=== PATIENT | male | born 1960 | race Caucasian/White ===

== ENCOUNTER 2017-07-02 08:51 | Inpatient (IN) ==
[2017-07-02] MEDS ORDERED: Aspirin 81 MG TAB.CHEW PO ONE (09:01)
[2017-07-02] MEDS ORDERED: 0.9 % Sodium Chloride 500 ML IVC ONE (09:01)
[2017-07-02] MEDS ORDERED: Ipratropium/Albuterol Neb 3 ML ONE (09:08)
[2017-07-02] MEDS: Ipratropium/Albuterol Neb 3 ML IH ONE ×2 (09:09→09:27)
[2017-07-02] MEDS: Nitroglycerin 0.4 MG TAB.SUBL SL PRN ×3 (09:09→09:19)
[2017-07-02 09:17] LABS: Immature Granulocytes % 0.4 % (0-4); Mean Corpuscular Volume 93.1 fL (83.0-100.0)
[2017-07-02 09:19] LABS: Basophils # 0.1 K/mcL (0.0-0.2); Basophils % 0.9 %; Eosinophils # 0.6 K/mcL (0.0-0.6); Hematocrit 51.6 % (37.5-50.1); Hemoglobin 17.8 g/dL (12.9-16.9); Immature Platelets 9.5 % (1.1-6.1); Lymphocytes # 2.3 K/mcL (0.6-4.6); Lymphocytes % 14.5 %; Mean Corpuscular HGB Conc 34.5 g/dL (31.6-35.5); Mean Corpuscular Hemoglobin 32.1 pg (28.0-33.3); Mean Platelet Volume 11.4 fL (9.4-12.4); Monocytes # 1.1 K/mcL (0.0-1.3); Monocytes % 6.8 %; Red Blood Count 5.54 M/mcL (4.19-5.50); Red Cell Distribution Width 14.7 % (11.5-14.5); Segmented Neutrophils % 73.4 %
[2017-07-02 09:20] LABS: Neutrophils # 11.8 K/mcL (1.6-8.9); Platelet Count 91 K/mcL (140-400)
[2017-07-02 09:29] LABS: BUN/Creatinine Ratio 14 (6-26); Blood Urea Nitrogen 13 mg/dL (8-26); Calcium 9.1 mg/dL (8.6-10.8); Carbon Dioxide 25 mEq/L (19-29); Chloride 104 mEq/L (98-109); Glucose 132 mg/dL (70-99); Osmolality,Calculated 290 (280-300); Sodium 139 mEq/L (136-145); eGFR For African Americans > 60 (> 60); eGFR For Non-African Americans > 60 (> 60)
--- NOTE | 2017-07-02 09:36 | Emergency Department Note ---
Disposition Clinical Impression: Atypical chest pain, Hypoxia, Multifocal pneumonia Chest pain Qualifiers: Chest pain type: other chest pain Qualified Code(s): R07.89 - Other chest pain Community acquired pneumonia Qualifiers: Laterality: right Lung location: lower lobe of lung Qualified Code(s): J18.1 - Lobar pneumonia, unspecified organism Bilateral pneumonia Qualifiers: Pneumonia type: due to unspecified organism Lung location: lower lobe of lung Qualified Code(s): J18.9 - Pneumonia, unspecified organism Leukocytosis Qualifiers: Leukocytosis type: unspecified Qualified Code(s): D72.829 - Elevated white blood cell count, unspecified Disposition: Admitted As Inpatient Condition: Fair Time of Disposition: 12:30 Chest Pain HPI - General Chief Complaint: ED Chest Pain Stated Complaint: APRIL,Coughing up blood,CP Time Seen by Provider: 07/02/17 09:01 Source: patient Limitations: no limitations Vital Signs Reviewed: Yes Nursing Notes Reviewed: Yes - History of Present Illness HPI Narrative: Patient is a 56-year-old male complains of chest pain, shortness of breath 2 months with worsening chest pain today. sharp pain 10/10 with radiation right-to -left across patient's chest. Patient's pain is constant. Patient was walked over from the residency clinic for severe hypoxia the O2 sat of 68% on room air. Which was witnessed here at bedside. Patient still able to stand and talk without any conversational dyspnea and had to be told to sit down. Patient placed on O2. 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 No history of previous NH. Severity scale (1-10): 0 - Related Data Home Medications Medication Instructions Recorded Confirmed Albuterol Sulfate [Ventolin Hfa] 2 puff IH Q6H PRN 07/02/17 07/02/17 Budesonide [Rhinocort Allergy] 2 spr NS DAILY 07/02/17 07/02/17 Budesonide/Formoterol 160/4.5 2 puff IH BIDR 07/02/17 07/02/17 [Symbicort 160/4.5] Cyclobenzaprine [Flexeril] 10 mg PO TID 07/02/17 07/02/17 Loratadine [Allergy Relief] 10 mg PO DAILY 07/02/17 07/02/17 Omeprazole [PriLOSEC] 20 mg PO DAILY 07/02/17 07/02/17 Allergies Allergy/AdvReac Type Severity Reaction Status Date / Time Penicillins Allergy Rash Verified 05/05/15 18:48 All systems ED: reviewed and negative except as stated. Review of Systems: As Per HPI Constitutional: Denies: fever Eyes: Denies: vision change ENT ED: Denies: congestion Cardiovascular: Reports: chest pain, dyspnea on exertion, orthopnea. Denies: palpitations Respiratory: Reports: cough, dyspnea. Denies: wheezes, hemoptysis Gastrointestinal: Denies: abdominal pain, nausea, vomiting, diarrhea Genitourinary: Denies: urgency, dysuria, frequency Musculoskeletal: Reports: back pain Integumentary: Denies: rash Neurological: Denies: headache, weakness Endocrine: Reports: fatigue Chest Pain PMH - Past Medical History Medical history: Reports: no medical history Psychiatric history: Reports: anxiety, depression, other - Social History Smoking Status: Current every day smoker Alcohol use: Reports: none Drug use: Reports: none Physical Exam Vital Signs Temperature 98.5 F 07/02/17 08:53 Pulse Rate 113 07/02/17 08:53 Respiratory Rate 16 07/02/17 08:53 Blood Pressure 179/107 07/02/17 08:53 O2 Sat by Pulse Oximetry 62 07/02/17 08:53 Temperature 98.5 F 07/02/17 08:53 Pulse Rate 94 07/02/17 09:01 Respiratory Rate 18 07/02/17 09:01 Blood Pressure 179/107 07/02/17 08:53 O2 Sat by Pulse Oximetry 99 07/02/17 09:01 Oxygen Delivery Oxygen Delivery Non Rebreather Mask 56-year-old male who is alert and oriented 3 and in acute distress. Patient is hypertensive at 179/107 and tachycardic at 113 with an O2 sat of 62% on room air. Patient was placed on O2 via nonrebreather at 15 L which brought his O2 sat slowly up to 100%. - General Limitations: no limitations General appearance: alert - Head Head exam: atraumatic, normocephalic, normal inspection - Eye Eye exam: Present: normal appearance, PERRL, EOMI - ENT ENT exam: normal exam, normal oropharynx, mucous membranes moist - Neck Neck exam: Present: normal inspection, full ROM, trachea midline - Chest Chest inspection: Present: normal inspection, symmetric chest wall rise - Respiratory Respiratory exam: Present: normal lung sounds bilaterally - Cardiovascular Cardiovascular exam: Present: normal rhythm, tachycardia - Abdominal Exam Abdominal exam: Present: soft, Non-Tender. Absent: tenderness, distention, guarding, rebound, rigidity - Extremities Exam Extremities exam: Present: normal inspection, full ROM, normal capillary refill. Absent: tenderness, pedal edema - Back Exam Back exam: Present: normal inspection, full ROM, CVA tenderness (R), CVA tenderness (L). Absent: tenderness - Neurological Exam Neurological exam: Present: alert, oriented X3 - Psychiatric Psychiatric exam: Present: normal affect, normal mood - Skin Skin exam: Present: warm, dry, intact, normal color. Absent: rash, diaphoresis , erythema, pallor Course - Consultations Consultation #1: Dr. Qiu hospitalist accepted patient for admission at 1120 hrs Time: 11:22 Vital Signs Temperature 98.5 F 07/02/17 08:53 Pulse Rate 113 07/02/17 08:53 Respiratory Rate 16 07/02/17 08:53 Blood Pressure 179/107 07/02/17 08:53 O2 Sat by Pulse Oximetry 62 07/02/17 08:53 Temperature 98.5 F 07/02/17 08:53 Pulse Rate 91 07/02/17 16:50 Respiratory Rate 14 07/02/17 16:50 Blood Pressure 142/85 07/02/17 16:50 O2 Sat by Pulse Oximetry 93 07/02/17 16:50 Oxygen Delivery Oxygen Delivery Simple Mask Chest Pain - [facility] Narrative Medical decision making narrative: Patient went fairly low O2 sat on room air presents with chest pain shortness of breath concerning for PE, ACS/NH. Aortic dissection is also on my differential given patient's a prior smoker 30 years, but has no pain radiation to his spine. Labs were ordered for chest pain to include d-dimer. Patient received DuoNeb's 3, 125 mg Solu-Medrol IV, aspirin, nitroglycerin which has stopped patient's pain from 05/15-5 after 2 doses patient will receive a third. Current plan is for admission concerning patient's hypoxia which drops down to 70s after patient comes off O2. 0948 hrs. Initial troponin 0.02, d-dimer results 508. CTA chest was ordered CT results showed no PE no aortic dissection, but did show multifocal pneumonia. Patient has no previous admissions over the past 6 months this is community-acquired pneumonia. Patient was started on levofloxacin 750 mg IV. Patient receiving IV V morphine 4 mg for pain. He also received 1 inch nitroglycerin paste. I discussed the findings with the patient who agrees to admission for treatment of his pneumonia which is complicated by low O2 sats whenever patient comes off supplemental oxygen. Reevaluation patient's pain. Patient states more chest wall with sharp pain between his ribs that persists after treatment with nitroglycerin but is reducible with morphine. Order 10 mg of Toradol to help the patient's chest wall pain, also place patient on cardiac diet. Dr. Qiu hospitalist accepted patient for admission at 1120 hrs - Lab Data Result diagrams: 07/02/17 09:04 07/02/17 09:04 Lab Results 07/02/17 07/02/17 07/02/17 Range/Units 09:04 09:04 09:04 WBC 16.1 H (4.3-11.1) K/mcL RBC 5.54 H (4.19-5.50) M/mcL Hgb 17.8 H (12.9-16.9) g/dL Hct 51.6 H (37.5-50.1) % MCV 93.1 (83.0-100.0) fL MCH 32.1 (28.0-33.3) pg MCHC 34.5 (31.6-35.5) g/dL RDW 14.7 H (11.5-14.5) % Plt Count 91 L (140-400) K/mcL MPV 11.4 (9.4-12.4) fL Immature Gran % 0.4 (0-4) % Seg Neutrophils % 73.4 % Lymphocytes % 14.5 % Monocytes % 6.8 % Eosinophils % 4.0 % Basophils % 0.9 % Neutrophils # 11.8 H (1.6-8.9) K/mcL Lymphocytes # 2.3 (0.6-4.6) K/mcL Monocytes # 1.1 (0.0-1.3) K/mcL Eosinophils # 0.6 (0.0-0.6) K/mcL Basophils # 0.1 (0.0-0.2) K/mcL Immature Plt Fraction 9.5 H (1.1-6.1) % D-Dimer 508 H (0-500) ng/mLFEU ABG pH (7.32-7.45) pH Units ABG pCO2 (35-45) mmHg ABG pO2 (85-104) mmHg ABG HCO3 (21-27) mEq/L ABG Total CO2 (20-26) mEq/L ABG O2 Saturation (95-98) % ABG Base Excess (-2 to 3) mEq/L O2 Delivery Device Inspired O2 (1-15=lpm bx44-550=%) Sodium 139 (136-145) mEq/L Potassium 4.0 (3.5-4.5) mEq/L Chloride 104 (98-109) mEq/L Carbon Dioxide 25 (19-29) mEq/L BUN 13 (8-26) mg/dL Creatinine 0.90 (0.72-1.25) mg/dL Est GFR ( Amer) > 60 (> 60) Est GFR (Non-Af Amer) > 60 (> 60) BUN/Creatinine Ratio 14 (6-26) Glucose 132 H (70-99) mg/dL Calculated Osmolality 290 (280-300) Calcium 9.1 (8.6-10.8) mg/dL Troponin I (0-0.03) ng/mL 07/02/17 07/02/17 Range/Units 09:04 12:20 WBC (4.3-11.1) K/mcL RBC (4.19-5.50) M/mcL Hgb (12.9-16.9) g/dL Hct (37.5-50.1) % MCV (83.0-100.0) fL MCH (28.0-33.3) pg MCHC (31.6-35.5) g/dL RDW (11.5-14.5) % Plt Count (140-400) K/mcL MPV (9.4-12.4) fL Immature Gran % (0-4) % Seg Neutrophils % % Lymphocytes % % Monocytes % % Eosinophils % % Basophils % % Neutrophils # (1.6-8.9) K/mcL Lymphocytes # (0.6-4.6) K/mcL Monocytes # (0.0-1.3) K/mcL Eosinophils # (0.0-0.6) K/mcL Basophils # (0.0-0.2) K/mcL Immature Plt Fraction (1.1-6.1) % D-Dimer (0-500) ng/mLFEU ABG pH 7.38 (7.32-7.45) pH Units ABG pCO2 48 H (35-45) mmHg ABG pO2 91 (85-104) mmHg ABG HCO3 28 H (21-27) mEq/L ABG Total CO2 29 H (20-26) mEq/L ABG O2 Saturation 97 (95-98) % ABG Base Excess 2 (-2 to 3) mEq/L O2 Delivery Device Oxy Mask Inspired O2 6.0 (1-15=lpm he92-562=%) Sodium (136-145) mEq/L Potassium (3.5-4.5) mEq/L Chloride (98-109) mEq/L Carbon Dioxide (19-29) mEq/L BUN (8-26) mg/dL Creatinine (0.72-1.25) mg/dL Est GFR ( Amer) (> 60) Est GFR (Non-Af Amer) (> 60) BUN/Creatinine Ratio (6-26) Glucose (70-99) mg/dL Calculated Osmolality (280-300) Calcium (8.6-10.8) mg/dL Troponin I 0.02 (0-0.03) ng/mL - Radiology Data Radiology results reviewed: Yes I reviewed the patient's radiology results. Chest X-Ray 07/02/17 09:01 IMPRESSION: 1. No acute cardiopulmonary process. 2. Unchanged findings of interstitial lung disease better seen on CT. D/ / Nikunj Galaviz MD / Nikunj Galaviz MD Interpreting Provider: Nikunj Galaviz MD Chest CTA 07/02/17 09:47 IMPRESSION: 1. No acute pulmonary embolism. 2. New patchy airspace opacities in the right lower lobe, left upper lobe, and left lower lobe. This is concerning for multifocal pneumonia. Edema could have a similar appearance. 3. Underlying diffuse pulmonary fibrosis as detailed on the CT scan 05/29/2017. 4. Enlarging hilar and mediastinal lymph nodes. Given the airspace opacities, this likely represents reactive lymphadenopathy. Attention on follow-up. D/ / Duglas Issa MD / Duglas Issa MD Interpreting Provider: Duglas Issa MD Heart Score - Score History: Moderately Suspicious EKG: Significant ST-Depression Age: 45-65 Risk Factors: 1-2 risk factors Troponin: Less than normal limit HEART Score Total: 5 Attestation Statement - Attestation Attestation: I, Chuck Hunter, examined this patient and my medical decision-making was reviewed with the NUCLEAR MEDICAL TECH/PA/Advanced Practice Nurse/Resident Physician. I agree with the documented findings, disposition and treatment plan as described except to the extent set forth below. 56-year-old male presents emergency Department with concerns of difficulty in breathing. Patient states he has been short of breath over the past month, he presented for his evaluation of the residency clinic today and was found to be severely hypoxic. On evaluation in emergency department he is hypoxic to 78% when oxygen is removed. CTA of his chest shows multifocal pneumonia. Patient given antibiotics emergency department and admitted for further care and evaluation.
[2017-07-02] MEDS ORDERED: methylPREDNISolone 125 MG/2 ML VIAL IVP ONE (09:46)
[2017-07-02] MEDS ORDERED: *HR* Morphine 2 MG/ML SYRINGE IVP ONE (10:58)
[2017-07-02] MEDS ORDERED: Nitroglycerin 1 INCH/GM PACKET TP ONE (10:58)
[2017-07-02] MEDS ORDERED: Levofloxacin 750 MG/150 ML 750 MG/150 ML BAG IVPB ONE (11:05)
[2017-07-02 12:23] LABS: ABG Base Excess 2 mEq/L (-2 to 3); ABG HCO3 28 mEq/L (21-27); ABG Oxygen Saturation 97 % (95-98); ABG PCO2 48 mmHg (35-45); ABG PH 7.38 pH Units (7.32-7.45); ABG PO2 91 mmHg (85-104); ABG TCO2 29 mEq/L (20-26)
[2017-07-02] MEDS ORDERED: Ketorolac 15 MG/ML VIAL IVP ONE (12:46)
[2017-07-02] MEDS ORDERED: Naloxone 0.4 MG/ML INJ IVP PRN (13:04)
[2017-07-02] MEDS ORDERED: Ondansetron 4 MG/2 ML VIAL IVP PRN (13:04)
[2017-07-02] MEDS ORDERED: Acetaminophen 325 MG TABLET PO PRN (13:04)
--- NOTE | 2017-07-02 13:10 | Internal Med History&Physical ---
Date of Encounter: 07/02/17 Time of Encounter: 13:08 Assessment and Plan (1) Acute respiratory failure with hypoxia Current visit: Yes Status: Acute Acute hypoxic respiratory failure secondary to acute COPD exacerbation due to sepsis from a community-acquired pneumonia in the setting of possible pulmonary fibrosis Continue Levaquin, Solu-Medrol, oxygen therapy, BiPAP as needed IV fluids ABG was ordered Omeprazole for GI prophylaxis and heparin for DVT prophylaxis. The patient will be admitted as inpatient, expected to stay more than 2 midnights. Full code. Time spent on this admission 40 minutes (2) Tobacco abuse Current visit: Yes Status: Acute Quit 3 months ago (3) Accelerated hypertension Current visit: Yes Status: Acute Start hydralazine IV as needed May start lisinopril one more stable (4) Hepatitis C Current visit: Yes Status: Acute Qualifiers: Viral hepatitis chronicity: unspecified Hepatic coma status: without hepatic coma Qualified Code(s): B19.20 - Unspecified viral hepatitis C without hepatic coma (5) Leukocytosis Current visit: Yes Status: Acute Qualifiers: Leukocytosis type: unspecified Qualified Code(s): D72.829 - Elevated white blood cell count, unspecified (6) Community acquired pneumonia Current visit: Yes Status: Acute Qualifiers: Laterality: right Lung location: lower lobe of lung Qualified Code(s): J18.1 - Lobar pneumonia, unspecified organism Internal Medicine - H&P: HPI Chief complaint: Shortness of breath Admitted From: Emergency Dept History of present illness: Mr. Pompa is a 56 year old male with a past medical history of COPD not oxygen dependent, possible pulmonary fibrosis, tobacco use up until 3 months ago , hepatitis C and possibly cirrhosis, who came complaining of difficulty breathing has been getting worse for the past 3 days but has been declining over the past 3 months. He came from the residence clinic as he desaturated down to the 60s. Has been complaining of fevers at home/non-quantified, green phlegm production. White blood cell count his 16.1 hemoglobin 17.8, d-dimer was elevated for which the patient had a CT angiogram the chest that did not show any pulmonary emboli but showed multifocal pneumonia and possible lung fibrosis. Patient was started on Levaquin and Solu-Medrol at the emergency room. Blood pressure was 179/107. Denies any other complaints other than chest pain and shortness of breath. Past Med Surg Social Fam HX - Past Medical History Medical history: COPD (Not oxygen dependent), hepatitis (Hepatitis C), other ( Prior history of tobacco use, anxiety, depression, chronic back pain, hypertension, cirrhosis, cholelithiasis) Psychiatric history: anxiety, depression, other - Past Surgical History Surgical History: no surgical history - Social History Smoking Status: Former smoker Packs per day: Quit 3 months ago he used to smoke 3 packs per day Smokeless Tobacco Status: No Alcohol use: none Drug use: none - Additional Family History Additional family history: Brother and sister with hypertension Internal Medicine - H&P: Meds Albuterol Sulfate [Ventolin Hfa] 2 puff IH Q6H PRN 07/02/17 [History] Budesonide [Rhinocort Allergy] 2 spr NS DAILY 07/02/17 [History] Budesonide/Formoterol 160/4.5 [Symbicort 160/4.5] 2 puff IH BIDR 07/02/17 [ History] Cyclobenzaprine [Flexeril] 10 mg PO TID 07/02/17 [History] Loratadine [Allergy Relief] 10 mg PO DAILY 07/02/17 [History] Omeprazole [PriLOSEC] 20 mg PO DAILY 07/02/17 [History] 3 Allergy/AdvReac Type Severity Reaction Status Date / Time Penicillins Allergy Rash Verified 05/05/15 18:48 All Systems PM: A 10-system review of systems was performed and is negative for pertinent findings except as documented above in the HPI. Review of systems: No abdominal pain or dysuria. Feels very weak. Other systems out of the 10 reviewed were negative - Constitutional Vitals: Temp Pulse Resp BP Pulse Ox 98.5 F 94 14 167/93 93 07/02/17 08:53 07/02/17 11:23 07/02/17 11:23 07/02/17 11:23 07/02/17 11:23 General appearance: Present: A&O X 3 - Head Head exam: Present: atraumatic, normocephalic - Eye Eye exam: Present: PERRL, conjuntiva pink, sclera anicteric Pupils: Present: PERRL - Neck Neck exam general surgery: Present: supple, trachea midline. Absent: lymphadenopathy - Respiratory Respiratory exam: Present: CTAB, rales, wheezes (Diffuse crackles and wheezing) . Absent: accessory muscle use, rhonchi - Cardiovascular Cardiovascular exam: Present: RRR, +S1, +S2. Absent: diastolic murmur, gallop, rubs, systolic murmur - GI/Abdominal GI/Abdominal exam: Present: normal bowel sounds, soft, no peritoneal signs. Absent: distended, tenderness - Extremities Exam Extremities exam: Present: warm, radial pulses palpable and symmetrical. Absent : calf tenderness, cyanotic, pedal edema - Neurological Exam Neurological exam: Present: CN II-XII intact, oriented X3, no focal deficits. Absent: pronater drift, facial droop, speech deficit - Skin Skin exam: Present: dry, intact Internal Med - H&P Results - Labs CBC & Chem 7: 07/02/17 09:04 07/02/17 09:04 - ABG Interpretation ABG results: 07/02/17 12:20 ABG pH 7.38 ABG pCO2 48 H ABG pO2 91 ABG HCO3 28 H ABG Total CO2 29 H ABG O2 Saturation 97 ABG Base Excess 2
[2017-07-02] MEDS: Ipratropium/Albuterol Neb 3 ML IH SCH ×3 (15:49→22:08)
[2017-07-02] MEDS: 0.9 % Sodium Chloride 1,000 ML IVC SCH (18:58)
[2017-07-02] MEDS: *HR* Heparin 5,000 UNIT/ML VIAL SQ SCH ×2 (18:58→23:21)
[2017-07-02] MEDS: MethylPREDNISolone 40 MG/ML VIAL IVP SCH ×2 (18:58→23:21)
[2017-07-02] MEDS: *HR* Morphine 2 MG/ML SYRINGE IVP PRN ×2 (20:02→23:22)
[2017-07-02] MEDS ORDERED: *HR* LORazepam 1 MG TABLET PO ONE (22:13)
[2017-07-03] MEDS: *HR* Morphine 2 MG/ML SYRINGE IVP PRN ×2 (03:11→09:11)
[2017-07-03] MEDS: Ipratropium/Albuterol Neb 3 ML IH SCH ×4 (03:44→21:35)
[2017-07-03] MEDS: *HR* OxyCODONE Immed Rel 5 MG TABLET PO PRN ×6 (04:21→23:49)
[2017-07-03] MEDS: 0.9 % Sodium Chloride 1,000 ML IVC SCH (04:22)
[2017-07-03 06:11] LABS: Basophils % 0.1 %; Hemoglobin 14.9 g/dL (12.9-16.9); Immature Granulocytes % 0.4 % (0-4); Immature Platelets 9.7 % (1.1-6.1); Lymphocytes # 0.9 K/mcL (0.6-4.6); Lymphocytes % 7.4 %; Mean Corpuscular HGB Conc 33.9 g/dL (31.6-35.5); Mean Corpuscular Hemoglobin 31.6 pg (28.0-33.3); Mean Corpuscular Volume 93.2 fL (83.0-100.0); Mean Platelet Volume 11.5 fL (9.4-12.4); Monocytes # 0.4 K/mcL (0.0-1.3); Monocytes % 3.1 %; Neutrophils # 10.9 K/mcL (1.6-8.9); Red Blood Count 4.72 M/mcL (4.19-5.50); Red Cell Distribution Width 14.7 % (11.5-14.5)
[2017-07-03] MEDS ORDERED: *HR* LORazepam 0.5 MG TABLET PO ONE (06:15)
[2017-07-03 06:16] LABS: Platelet Count 80 K/mcL (140-400)
[2017-07-03 06:29] LABS: BUN/Creatinine Ratio 22 (6-26); Blood Urea Nitrogen 18 mg/dL (8-26); Calcium 8.4 mg/dL (8.6-10.8); Carbon Dioxide 23 mEq/L (19-29); Chloride 106 mEq/L (98-109); Glucose 203 mg/dL (70-99); Osmolality,Calculated 294 (280-300); Potassium 4.2 mEq/L (3.5-4.5); Sodium 138 mEq/L (136-145); eGFR For African Americans > 60 (> 60); eGFR For Non-African Americans > 60 (> 60)
--- NOTE | 2017-07-03 07:05 | Electrocardiograph Report ---
[facility] Test Date: 2017-07-02 Pat Name: Juan Jose Pompa Department: 104 Room: 2A22 Gender: M Butcher Head: MSC : 1960 Requested By: Joselito Veras Order Number: [id number] Reading MD: Darien Parson DO Measurements Intervals [place] Rate: 96 P: 41 ND: 176 QRS: 65 QRSD: 89 T: 2 QT: 369 QTc: 422 Interpretive Statements SINUS RHYTHM MODERATE T-WAVE ABNORMALITY, CONSIDER ANTERIOR ISCHEMIA [-0.1+ mV T WAVE IN V3/V4] Electronically Signed On 07-03-2017 7:04:09 EST by Darien Parson DO
[2017-07-03] MEDS: Levofloxacin 750 MG/150 ML 750 MG/150 ML BAG IVPB SCH (09:10)
[2017-07-03] MEDS: MethylPREDNISolone 40 MG/ML VIAL IVP SCH ×3 (09:11→23:49)
[2017-07-03] MEDS: *HR* Heparin 5,000 UNIT/ML VIAL SQ SCH ×3 (09:11→23:49)
--- NOTE | 2017-07-03 11:30 | Internal Med Progress Note ---
Date of Encounter: 07/03/17 Time of Encounter: : - Assessment and plan (1) Acute respiratory failure with hypoxia Current Visit: Yes Status: Acute Assessment and plan: Acute hypoxic and hypercapnic respiratory failure secondary to acute COPD exacerbation due to sepsis from a community-acquired pneumonia in the setting of possible pulmonary fibrosis continue Levaquin, Solu-Medrol, oxygen therapy, venti mask IV fluids keep between sat 88-92 % (2) Tobacco abuse Current Visit: Yes Status: Acute Assessment and plan: Quit 3 months ago (3) Accelerated hypertension Current Visit: Yes Status: Acute Assessment and plan: Start hydralazine IV as needed May start lisinopril once more stable (4) Hepatitis C Current Visit: Yes Status: Acute Qualifiers: Viral hepatitis chronicity: unspecified Hepatic coma status: without hepatic coma Qualified Code(s): B19.20 - Unspecified viral hepatitis C without hepatic coma (5) Leukocytosis Current Visit: Yes Status: Acute Qualifiers: Leukocytosis type: unspecified Qualified Code(s): D72.829 - Elevated white blood cell count, unspecified (6) Community acquired pneumonia Current Visit: Yes Status: Acute Qualifiers: Laterality: right Lung location: lower lobe of lung Qualified Code(s): J18.1 - Lobar pneumonia, unspecified organism (7) Polycythemia Current Visit: Yes Status: Acute Assessment and plan: 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 - Subjective Interval history: requiring 10 Lt of oxygen, denies CP, feels very short of breath, bringing up yellowish/bloody phlegm , no fever, - Constitutional Vitals: Temp Pulse Resp BP Pulse Ox 97.8 F 96 17 150/87 90 07/03/17 11:06 07/03/17 11:06 07/03/17 11:06 07/03/17 11:06 07/03/17 11:06 General appearance: Present: A&O X 3 - Head Head exam: Present: atraumatic, normocephalic - Eye Eye exam: Present: PERRL, conjuntiva pink, sclera anicteric Pupils: Present: PERRL - Neck Neck exam general surgery: Present: supple, trachea midline. Absent: lymphadenopathy - Respiratory Respiratory exam: Present: CTAB, rales, wheezes (diffuse). Absent: accessory muscle use, rhonchi - Cardiovascular Cardiovascular exam: Present: RRR, +S1, +S2. Absent: diastolic murmur, gallop, rubs, systolic murmur - GI/Abdominal GI/Abdominal exam: Present: normal bowel sounds, soft, no peritoneal signs. Absent: distended, tenderness - Extremities Exam Extremities exam: Present: warm, radial pulses palpable and symmetrical. Absent : calf tenderness, cyanotic, pedal edema - Neurological Exam Neurological exam: Present: CN II-XII intact, oriented X3, no focal deficits. Absent: pronater drift, facial droop, speech deficit - Skin Skin exam: Present: dry, intact Internal Medicine: Result - Labs CBC & Chem 7: 07/03/17 04:55 07/03/17 04:55 Labs: Short CBC 07/03/17 Range/Units 04:55 WBC 12.2 H (4.3-11.1) K/mcL Hgb 14.9 D (12.9-16.9) g/dL Hct 44.0 (37.5-50.1) % Plt Count 80 L (140-400) K/mcL Neutrophils # 10.9 H (1.6-8.9) K/mcL BMP 07/03/17 04:55 Sodium 138 Potassium 4.2 Chloride 106 Carbon Dioxide 23 BUN 18 Creatinine 0.82 Glucose 203 H Calcium 8.4 L - ABG Interpretation ABG results: ABG ABG pH 7.38 pH Units (7.32-7.45) 07/02/17 12:20 ABG pCO2 48 mmHg (35-45) H 07/02/17 12:20 ABG pO2 91 mmHg (85-104) 07/02/17 12:20 ABG O2 Saturation 97 % (95-98) 07/02/17 12:20 PT/INR, D-dimer D-Dimer 508 ng/mLFEU (0-500) H 07/02/17 09:04 Consult Discharge Plan - Plan Referrals: Chuck Solis [Primary Care Provider] -
[2017-07-03] MEDS: *HR* LORazepam 2 MG/ML VIAL IVP PRN ×2 (17:50→23:50)
[2017-07-04] MEDS: Ipratropium/Albuterol Neb 3 ML IH SCH ×4 (03:32→21:14)
[2017-07-04] MEDS: *HR* OxyCODONE Immed Rel 5 MG TABLET PO PRN ×5 (03:43→21:45)
[2017-07-04] MEDS: *HR* LORazepam 2 MG/ML VIAL IVP PRN ×3 (08:06→21:54)
[2017-07-04] MEDS: MethylPREDNISolone 40 MG/ML VIAL IVP SCH ×2 (08:06→15:29)
[2017-07-04] MEDS: *HR* Heparin 5,000 UNIT/ML VIAL SQ SCH ×2 (08:06→15:28)
[2017-07-04] MEDS: Levofloxacin 750 MG/150 ML 750 MG/150 ML BAG IVPB SCH (08:07)
--- NOTE | 2017-07-04 15:09 | Internal Med Progress Note ---
Date of Encounter: 07/04/17 Time of Encounter: 15:07 - Assessment and plan (1) Acute respiratory failure with hypoxia Current Visit: Yes Status: Acute Assessment and plan: Acute hypoxic and hypercapnic respiratory failure secondary to acute COPD exacerbation due to sepsis from a community-acquired pneumonia in the setting of possible pulmonary fibrosis continue Levaquin day 3, Solu-Medrol, oxygen therapy, venti mask IV fluids keep between sat 88-92 % (2) Tobacco abuse Current Visit: Yes Status: Acute Assessment and plan: Quit 3 months ago (3) Accelerated hypertension Current Visit: Yes Status: Acute Assessment and plan: Start hydralazine IV as needed start lisinopril once more stable (4) Hepatitis C Current Visit: Yes Status: Acute Qualifiers: Viral hepatitis chronicity: unspecified Hepatic coma status: without hepatic coma Qualified Code(s): B19.20 - Unspecified viral hepatitis C without hepatic coma (5) Leukocytosis Current Visit: Yes Status: Acute Qualifiers: Leukocytosis type: unspecified Qualified Code(s): D72.829 - Elevated white blood cell count, unspecified (6) Community acquired pneumonia Current Visit: Yes Status: Acute Qualifiers: Laterality: right Lung location: lower lobe of lung Qualified Code(s): J18.1 - Lobar pneumonia, unspecified organism (7) Polycythemia Current Visit: Yes Status: Acute Assessment and plan: 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 - Subjective Interval history: Still requiring 10 Lt of oxygen, denies CP, feels very short of breath, bringing up yellowish/bloody phlegm , no fever, - Constitutional Vitals: Temp Pulse Resp BP Pulse Ox 97.5 F L 87 18 137/81 90 07/04/17 10:58 07/04/17 10:58 07/04/17 10:58 07/04/17 10:58 07/04/17 11:05 General appearance: Present: A&O X 3 - Head Head exam: Present: atraumatic, normocephalic - Eye Eye exam: Present: PERRL, conjuntiva pink, sclera anicteric Pupils: Present: PERRL - Neck Neck exam general surgery: Present: supple, trachea midline. Absent: lymphadenopathy - Respiratory Respiratory exam: Present: CTAB, wheezes (less diffuse wheezing). Absent: accessory muscle use, rales, rhonchi - Cardiovascular Cardiovascular exam: Present: RRR, +S1, +S2. Absent: diastolic murmur, gallop, rubs, systolic murmur - GI/Abdominal GI/Abdominal exam: Present: normal bowel sounds, soft, no peritoneal signs. Absent: distended, tenderness - Extremities Exam Extremities exam: Present: warm, radial pulses palpable and symmetrical. Absent : calf tenderness, cyanotic, pedal edema - Neurological Exam Neurological exam: Present: CN II-XII intact, oriented X3, no focal deficits. Absent: pronater drift, facial droop, speech deficit - Skin Skin exam: Present: dry, intact Internal Medicine: Result - Labs CBC & Chem 7: 07/03/17 04:55 07/03/17 04:55 - ABG Interpretation ABG results: ABG ABG pH 7.38 pH Units (7.32-7.45) 07/02/17 12:20 ABG pCO2 48 mmHg (35-45) H 07/02/17 12:20 ABG pO2 91 mmHg (85-104) 07/02/17 12:20 ABG O2 Saturation 97 % (95-98) 07/02/17 12:20 PT/INR, D-dimer D-Dimer 508 ng/mLFEU (0-500) H 07/02/17 09:04 Consult Discharge Plan - Plan Referrals: Chuck Solis [Primary Care Provider] - 08/08/17 9:00 am (First open appointment. If you need seen sooner please call to see if there was any cancellations)
[2017-07-04] MEDS: Benzonatate 100 MG CAPSULE PO PRN ×2 (15:35→21:45)
[2017-07-05] MEDS: *HR* Heparin 5,000 UNIT/ML VIAL SQ SCH ×3 (00:17→15:25)
[2017-07-05] MEDS: MethylPREDNISolone 40 MG/ML VIAL IVP SCH ×3 (00:17→15:25)
[2017-07-05] MEDS: *HR* OxyCODONE Immed Rel 5 MG TABLET PO PRN ×6 (01:43→21:42)
[2017-07-05] MEDS: Ipratropium/Albuterol Neb 3 ML IH SCH ×4 (03:38→22:15)
[2017-07-05] MEDS: *HR* LORazepam 2 MG/ML VIAL IVP PRN ×3 (03:52→17:43)
[2017-07-05] MEDS: Benzonatate 100 MG CAPSULE PO PRN ×2 (03:52→21:42)
[2017-07-05 06:31] LABS: Hematocrit 47.1 % (37.5-50.1); Hemoglobin 15.5 g/dL (12.9-16.9); Immature Platelets 7.9 % (1.1-6.1); Mean Corpuscular HGB Conc 32.9 g/dL (31.6-35.5); Mean Corpuscular Volume 97.1 fL (83.0-100.0); Red Blood Count 4.85 M/mcL (4.19-5.50); Red Cell Distribution Width 14.8 % (11.5-14.5)
[2017-07-05 06:50] LABS: BUN/Creatinine Ratio 17 (6-26); Blood Urea Nitrogen 15 mg/dL (8-26); Calcium 8.8 mg/dL (8.6-10.8); Carbon Dioxide 25 mEq/L (19-29); Chloride 101 mEq/L (98-109); Glucose 370 mg/dL (70-99); Osmolality,Calculated 300 (280-300); Potassium 4.5 mEq/L (3.5-4.5); Sodium 137 mEq/L (136-145); eGFR For African Americans > 60 (> 60); eGFR For Non-African Americans > 60 (> 60)
[2017-07-05] MEDS: Levofloxacin 750 MG/150 ML 750 MG/150 ML BAG IVPB SCH (10:48)
--- NOTE | 2017-07-05 12:00 | Internal Med Progress Note ---
Date of Encounter: 07/05/17 Time of Encounter: 11:58 - Assessment and plan (1) Acute respiratory failure with hypoxia Current Visit: Yes Status: Acute Assessment and plan: Acute hypoxic and hypercapnic respiratory failure secondary to acute COPD exacerbation due to sepsis from a community-acquired pneumonia in the setting of possible pulmonary fibrosis continue Levaquin day 4, continue Solu-Medrol, oxygen therapy, venti mask keep between sat 88-92 % (2) Tobacco abuse Current Visit: Yes Status: Acute Assessment and plan: Quit 3 months ago (3) Accelerated hypertension Current Visit: Yes Status: Acute Assessment and plan: Start hydralazine IV as needed started lisinopril (4) Hepatitis C Current Visit: Yes Status: Acute Qualifiers: Viral hepatitis chronicity: unspecified Hepatic coma status: without hepatic coma Qualified Code(s): B19.20 - Unspecified viral hepatitis C without hepatic coma (5) Leukocytosis Current Visit: Yes Status: Acute Qualifiers: Leukocytosis type: unspecified Qualified Code(s): D72.829 - Elevated white blood cell count, unspecified (6) Community acquired pneumonia Current Visit: Yes Status: Acute Qualifiers: Laterality: right Lung location: lower lobe of lung Qualified Code(s): J18.1 - Lobar pneumonia, unspecified organism (7) Polycythemia Current Visit: Yes Status: Acute Assessment and plan: 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 (8) Thrombocytopenia Current Visit: Yes Status: Acute Assessment and plan: chronic thrombocytopenia - Subjective Interval history: The patient is still requiring 10 Lt of oxygen, denies CP, feels very short of breath, still bringing up yellowish/bloody phlegm , no fever, - Constitutional Vitals: Temp Pulse Resp BP Pulse Ox 97.9 F 82 17 151/91 96 07/05/17 07:21 07/05/17 07:21 07/05/17 07:21 07/05/17 07:21 07/05/17 09:13 General appearance: Present: A&O X 3 - Head Head exam: Present: atraumatic, normocephalic - Eye Eye exam: Present: PERRL, conjuntiva pink, sclera anicteric Pupils: Present: PERRL - Neck Neck exam general surgery: Present: supple, trachea midline. Absent: lymphadenopathy - Respiratory Respiratory exam: Present: CTAB, rhonchi, wheezes (minimal ). Absent: accessory muscle use, rales - Cardiovascular Cardiovascular exam: Present: RRR, +S1, +S2. Absent: diastolic murmur, gallop, rubs, systolic murmur - GI/Abdominal GI/Abdominal exam: Present: normal bowel sounds, soft, no peritoneal signs. Absent: distended, tenderness - Extremities Exam Extremities exam: Present: warm, radial pulses palpable and symmetrical. Absent : calf tenderness, cyanotic, pedal edema - Neurological Exam Neurological exam: Present: CN II-XII intact, oriented X3, no focal deficits. Absent: pronater drift, facial droop, speech deficit - Skin Skin exam: Present: dry, intact Internal Medicine: Result - Labs CBC & Chem 7: 07/05/17 05:47 07/05/17 05:47 Labs: Short CBC 07/05/17 Range/Units 05:47 WBC 10.9 (4.3-11.1) K/mcL Hgb 15.5 (12.9-16.9) g/dL Hct 47.1 (37.5-50.1) % Plt Count 89 L (140-400) K/mcL BMP 07/05/17 05:47 Sodium 137 Potassium 4.5 Chloride 101 Carbon Dioxide 25 BUN 15 Creatinine 0.86 Glucose 370 H Calcium 8.8 - ABG Interpretation ABG results: ABG ABG pH 7.38 pH Units (7.32-7.45) 07/02/17 12:20 ABG pCO2 48 mmHg (35-45) H 07/02/17 12:20 ABG pO2 91 mmHg (85-104) 07/02/17 12:20 ABG O2 Saturation 97 % (95-98) 07/02/17 12:20 PT/INR, D-dimer D-Dimer 508 ng/mLFEU (0-500) H 07/02/17 09:04 Consult Discharge Plan - Plan Referrals: Chuck Solis [Primary Care Provider] - 08/08/17 9:00 am (First open appointment. If you need seen sooner please call to see if there was any cancellations)
[2017-07-06] MEDS: *HR* Heparin 5,000 UNIT/ML VIAL SQ SCH ×3 (00:48→16:33)
[2017-07-06] MEDS: *HR* LORazepam 2 MG/ML VIAL IVP PRN ×4 (00:49→19:40)
[2017-07-06] MEDS: MethylPREDNISolone 40 MG/ML VIAL IVP SCH ×3 (00:49→16:33)
[2017-07-06] MEDS: *HR* OxyCODONE Immed Rel 5 MG TABLET PO PRN ×5 (02:23→19:39)
[2017-07-06] MEDS: Ipratropium/Albuterol Neb 3 ML IH SCH ×4 (04:04→21:11)
[2017-07-06] MEDS: Levofloxacin 750 MG/150 ML 750 MG/150 ML BAG IVPB SCH (07:53)
[2017-07-06] MEDS ORDERED: *HR* Dextrose 50 % in Water (Syg) 50 ML SYRINGE IVP PRN (08:48)
[2017-07-06] MEDS ORDERED: Dextrose Gel 15 GM PO PRN ×2 (08:48)
[2017-07-06] MEDS ORDERED: D5% in Water 1,000 ML IVC PRN (08:48)
--- NOTE | 2017-07-06 09:16 | Internal Med Progress Note ---
Date of Encounter: 07/06/17 Time of Encounter: 09:15 - Assessment and plan (1) Acute respiratory failure with hypoxia Current Visit: Yes Status: Acute Assessment and plan: Acute hypoxic and hypercapnic respiratory failure secondary to acute COPD exacerbation due to sepsis from a community-acquired pneumonia in the setting of possible pulmonary fibrosis continue Levaquin day 5, continue Solu-Medrol, oxygen therapy, venti mask keep between sat 88-92 % (2) Tobacco abuse Current Visit: Yes Status: Acute Assessment and plan: Quit 3 months ago (3) Accelerated hypertension Current Visit: Yes Status: Acute Assessment and plan: Start hydralazine IV as needed started lisinopril (4) Hepatitis C Current Visit: Yes Status: Acute Qualifiers: Viral hepatitis chronicity: unspecified Hepatic coma status: without hepatic coma Qualified Code(s): B19.20 - Unspecified viral hepatitis C without hepatic coma (5) Leukocytosis Current Visit: Yes Status: Acute Qualifiers: Leukocytosis type: unspecified Qualified Code(s): D72.829 - Elevated white blood cell count, unspecified (6) Community acquired pneumonia Current Visit: Yes Status: Acute Qualifiers: Laterality: right Lung location: lower lobe of lung Qualified Code(s): J18.1 - Lobar pneumonia, unspecified organism (7) Polycythemia Current Visit: Yes Status: Acute Assessment and plan: 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 (8) Thrombocytopenia Current Visit: Yes Status: Acute Assessment and plan: chronic thrombocytopenia (9) Steroid-induced hyperglycemia Current Visit: Yes Status: Acute Assessment and plan: insulin sliding scale - Subjective Interval history: The patient has clinically improved although he is still requiring 10 Lt of oxygen, denies CP, feels less short of breath, still bringing up yellowish/ bloody phlegm , no fever, - Constitutional Vitals: Temp Pulse Resp BP Pulse Ox 98.1 F 76 16 167/84 97 07/06/17 07:19 07/06/17 07:19 07/06/17 07:19 07/06/17 07:19 07/06/17 07:19 General appearance: Present: A&O X 3 - Head Head exam: Present: atraumatic, normocephalic - Eye Eye exam: Present: PERRL, conjuntiva pink, sclera anicteric Pupils: Present: PERRL - Neck Neck exam general surgery: Present: supple, trachea midline. Absent: lymphadenopathy - Respiratory Respiratory exam: Present: CTAB, rhonchi. Absent: accessory muscle use, rales, wheezes - Cardiovascular Cardiovascular exam: Present: RRR, +S1, +S2. Absent: diastolic murmur, gallop, rubs, systolic murmur - GI/Abdominal GI/Abdominal exam: Present: normal bowel sounds, soft, no peritoneal signs. Absent: distended, tenderness - Extremities Exam Extremities exam: Present: warm, radial pulses palpable and symmetrical. Absent : calf tenderness, cyanotic, pedal edema - Neurological Exam Neurological exam: Present: CN II-XII intact, oriented X3, no focal deficits. Absent: pronater drift, facial droop, speech deficit - Skin Skin exam: Present: dry, intact Internal Medicine: Result - Labs CBC & Chem 7: 07/05/17 05:47 07/05/17 05:47 - ABG Interpretation ABG results: ABG ABG pH 7.38 pH Units (7.32-7.45) 07/02/17 12:20 ABG pCO2 48 mmHg (35-45) H 07/02/17 12:20 ABG pO2 91 mmHg (85-104) 07/02/17 12:20 ABG O2 Saturation 97 % (95-98) 07/02/17 12:20 PT/INR, D-dimer D-Dimer 508 ng/mLFEU (0-500) H 07/02/17 09:04 Consult Discharge Plan - Plan Referrals: Chuck Solis [Primary Care Provider] - 08/08/17 9:00 am (First open appointment. If you need seen sooner please call to see if there was any cancellations)
[2017-07-06] MEDS: Insulin LISPRO 300 UNITS/3 ML VIAL SQ SCH ×3 (12:09→21:23)
[2017-07-07] MEDS: *HR* Heparin 5,000 UNIT/ML VIAL SQ SCH ×4 (00:32→23:48)
[2017-07-07] MEDS: MethylPREDNISolone 40 MG/ML VIAL IVP SCH ×4 (00:32→23:48)
[2017-07-07] MEDS: *HR* OxyCODONE Immed Rel 5 MG TABLET PO PRN ×6 (00:32→21:33)
[2017-07-07] MEDS ORDERED: *HR* Labetalol 20 MG/4 ML SYRINGE IVP ONE (02:40)
[2017-07-07] MEDS: Ipratropium/Albuterol Neb 3 ML IH SCH ×4 (04:34→21:24)
[2017-07-07] MEDS: levoFLOXacin 750 MG TABLET PO SCH (08:41)
[2017-07-07] MEDS: Insulin LISPRO 300 UNITS/3 ML VIAL SQ SCH ×4 (08:41→21:34)
[2017-07-07] MEDS: *HR* LORazepam 2 MG/ML VIAL IVP PRN ×3 (08:44→21:34)
--- NOTE | 2017-07-07 09:33 | Internal Med Progress Note ---
Date of Encounter: 07/07/17 Time of Encounter: 09:30 - Assessment and plan (1) Acute respiratory failure with hypoxia Current Visit: Yes Status: Acute Assessment and plan: Acute hypoxic and hypercapnic respiratory failure secondary to acute COPD exacerbation due to sepsis from a community-acquired pneumonia in the setting of possible pulmonary fibrosis not improving, case informally disscused with Dr Tiwari, he will see him as outpatient as it will take him a long time for his lungs to recover and oxygen requirements to go down continue Levaquin day 6, continue Solu-Medrol, oxygen therapy, venti mask start cefepime will need a high flow nasal cannula/ O2 concentrator at home keep between sat 88-92 % (2) Tobacco abuse Current Visit: Yes Status: Acute Assessment and plan: Quit 3 months ago (3) Accelerated hypertension Current Visit: Yes Status: Acute Assessment and plan: Start hydralazine IV as needed started lisinopril (4) Hepatitis C Current Visit: Yes Status: Acute Qualifiers: Viral hepatitis chronicity: unspecified Hepatic coma status: without hepatic coma Qualified Code(s): B19.20 - Unspecified viral hepatitis C without hepatic coma (5) Leukocytosis Current Visit: Yes Status: Acute Qualifiers: Leukocytosis type: unspecified Qualified Code(s): D72.829 - Elevated white blood cell count, unspecified (6) Community acquired pneumonia Current Visit: Yes Status: Acute Qualifiers: Laterality: right Lung location: lower lobe of lung Qualified Code(s): J18.1 - Lobar pneumonia, unspecified organism (7) Polycythemia Current Visit: Yes Status: Acute Assessment and plan: 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 The patient has clinically improved although he is still requiring 10 Lt of oxygen, denies CP, feels less short of breath , no fever, - Constitutional Vitals: Temp Pulse Resp BP Pulse Ox 97.7 F 87 20 120/66 94 07/07/17 07:34 07/07/17 07:34 07/07/17 09:00 07/07/17 07:34 07/07/17 09:00 General appearance: Present: A&O X 3 Exam: - Head Head exam: Present: atraumatic, normocephalic - Eye Eye exam: Present: PERRL, conjuntiva pink, sclera anicteric Pupils: Present: PERRL - Neck Neck exam general surgery: Present: supple, trachea midline. Absent: lymphadenopathy - Respiratory Respiratory exam: Present: CTAB, rhonchi. Absent: accessory muscle use, rales, less wheezes - Cardiovascular Cardiovascular exam: Present: RRR, +S1, +S2. Absent: diastolic murmur, gallop, rubs, systolic murmur - GI/Abdominal GI/Abdominal exam: Present: normal bowel sounds, soft, no peritoneal signs. Absent: distended, tenderness - Extremities Exam Extremities exam: Present: warm, radial pulses palpable and symmetrical. Absent : calf tenderness, cyanotic, pedal edema - Neurological Exam Neurological exam: Present: CN II-XII intact, oriented X3, no focal deficits. Absent: pronater drift, facial droop, speech deficit - Skin Skin exam: Present: dry, intact Internal Medicine: Result - Labs CBC & Chem 7: 07/05/17 05:47 07/05/17 05:47 - ABG Interpretation ABG results: ABG ABG pH 7.38 pH Units (7.32-7.45) 07/02/17 12:20 ABG pCO2 48 mmHg (35-45) H 07/02/17 12:20 ABG pO2 91 mmHg (85-104) 07/02/17 12:20 ABG O2 Saturation 97 % (95-98) 07/02/17 12:20 PT/INR, D-dimer D-Dimer 508 ng/mLFEU (0-500) H 07/02/17 09:04 Consult Discharge Plan - Plan Referrals: Chuck Solis [Primary Care Provider] - 08/08/17 9:00 am (First open appointment. If you need seen sooner please call to see if there was any cancellations)
[2017-07-07] MEDS: Cefepime HCl 1,000 MG in Water for inj. (sterile) 10 ML IVPB SCH ×2 (12:19→21:33)
[2017-07-08] MEDS: *HR* OxyCODONE Immed Rel 5 MG TABLET PO PRN ×5 (02:44→20:27)
[2017-07-08] MEDS: Benzonatate 100 MG CAPSULE PO PRN (02:44)
[2017-07-08] MEDS: *HR* LORazepam 2 MG/ML VIAL IVP PRN ×4 (03:39→23:45)
[2017-07-08] MEDS: Ipratropium/Albuterol Neb 3 ML IH SCH ×4 (04:31→21:11)
[2017-07-08] MEDS: *HR* Heparin 5,000 UNIT/ML VIAL SQ SCH ×3 (07:52→23:01)
[2017-07-08] MEDS: levoFLOXacin 750 MG TABLET PO SCH (07:52)
[2017-07-08] MEDS: Insulin LISPRO 300 UNITS/3 ML VIAL SQ SCH ×4 (07:52→20:28)
[2017-07-08] MEDS: MethylPREDNISolone 40 MG/ML VIAL IVP SCH ×3 (07:52→23:01)
--- NOTE | 2017-07-08 08:53 | Internal Med Progress Note ---
Date of Encounter: 07/08/17 Time of Encounter: 08:50 - Assessment and plan (1) Acute respiratory failure with hypoxia Current Visit: Yes Status: Acute Assessment and plan: Acute hypoxic and hypercapnic respiratory failure secondary to acute COPD exacerbation due to sepsis from a community-acquired pneumonia in the setting of possible pulmonary fibrosis Oxygen requirements not improving, case informally discussed with Dr Tiwari ( [facility] who sees him as outpatient), who mentioned that it will take him a long time for his oxygen requirements to go down discontinue Levaquin day 7, continue Solu-Medrol, oxygen therapy, venti mask cefepime day 2 will need a high flow nasal cannula/ O2 concentrator at home with 10 Lt ( not able to be arranged during the weekend) keep between sat 88-92 % (2) Tobacco abuse Current Visit: Yes Status: Acute Assessment and plan: Quit 3 months ago (3) Accelerated hypertension Current Visit: Yes Status: Acute Assessment and plan: hydralazine IV as needed started lisinopril (4) Hepatitis C Current Visit: Yes Status: Acute Qualifiers: Viral hepatitis chronicity: unspecified Hepatic coma status: without hepatic coma Qualified Code(s): B19.20 - Unspecified viral hepatitis C without hepatic coma (5) Leukocytosis Current Visit: Yes Status: Acute Qualifiers: Leukocytosis type: unspecified Qualified Code(s): D72.829 - Elevated white blood cell count, unspecified (6) Community acquired pneumonia Current Visit: Yes Status: Acute Qualifiers: Laterality: right Lung location: lower lobe of lung Qualified Code(s): J18.1 - Lobar pneumonia, unspecified organism (7) Polycythemia Current Visit: Yes Status: Acute Assessment and plan: 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 (8) Thrombocytopenia Current Visit: Yes Status: Acute Assessment and plan: chronic thrombocytopenia (9) Steroid-induced hyperglycemia Current Visit: Yes Status: Acute Assessment and plan: insulin sliding scale - Subjective Interval history: Still coughing up phlegm. The patient has clinically improved although he is still requiring 10 Lt of oxygen, denies CP, feels less short of breath , no fever, - Constitutional Vitals: Temp Pulse Resp BP Pulse Ox 97.6 F 72 18 135/71 95 07/08/17 06:49 07/08/17 06:49 07/08/17 06:49 07/08/17 06:49 07/08/17 06:49 General appearance: Present: A&O X 3 - Head Head exam: Present: atraumatic, normocephalic - Eye Eye exam: Present: PERRL, conjuntiva pink, sclera anicteric Pupils: Present: PERRL - Neck Neck exam general surgery: Present: supple, trachea midline. Absent: lymphadenopathy - Respiratory Respiratory exam: Present: CTAB, rhonchi. Absent: accessory muscle use, rales, wheezes - Cardiovascular Cardiovascular exam: Present: RRR, +S1, +S2. Absent: diastolic murmur, gallop, rubs, systolic murmur - GI/Abdominal GI/Abdominal exam: Present: normal bowel sounds, soft, no peritoneal signs. Absent: distended, tenderness - Extremities Exam Extremities exam: Present: warm, radial pulses palpable and symmetrical. Absent : calf tenderness, cyanotic, pedal edema - Neurological Exam Neurological exam: Present: CN II-XII intact, oriented X3, no focal deficits. Absent: pronater drift, facial droop, speech deficit - Skin Skin exam: Present: dry, intact Internal Medicine: Result - Labs CBC & Chem 7: 07/05/17 05:47 07/05/17 05:47 - ABG Interpretation ABG results: ABG ABG pH 7.38 pH Units (7.32-7.45) 07/02/17 12:20 ABG pCO2 48 mmHg (35-45) H 07/02/17 12:20 ABG pO2 91 mmHg (85-104) 07/02/17 12:20 ABG O2 Saturation 97 % (95-98) 07/02/17 12:20 PT/INR, D-dimer D-Dimer 508 ng/mLFEU (0-500) H 07/02/17 09:04 Consult Discharge Plan - Plan Referrals: Chuck Solis [Primary Care Provider] - 08/08/17 9:00 am (First open appointment. If you need seen sooner please call to see if there was any cancellations)
[2017-07-08] MEDS: Cefepime HCl 1,000 MG in Water for inj. (sterile) 10 ML IVPB SCH ×2 (10:59→23:01)
[2017-07-09] MEDS: *HR* OxyCODONE Immed Rel 5 MG TABLET PO PRN ×3 (00:35→11:41)
[2017-07-09 03:11] LABS: Hemoglobin 15.2 g/dL (12.9-16.9); Red Cell Distribution Width 14.6 % (11.5-14.5)
[2017-07-09 03:13] LABS: Hematocrit 45.9 % (37.5-50.1); Immature Platelets 6.3 % (1.1-6.1); Mean Corpuscular HGB Conc 33.1 g/dL (31.6-35.5); Mean Corpuscular Hemoglobin 31.3 pg (28.0-33.3); Mean Corpuscular Volume 94.4 fL (83.0-100.0); Mean Platelet Volume 11.4 fL (9.4-12.4); Red Blood Count 4.86 M/mcL (4.19-5.50)
[2017-07-09 03:31] LABS: BUN/Creatinine Ratio 24 (6-26); Blood Urea Nitrogen 23 mg/dL (8-26); Calcium 8.9 mg/dL (8.6-10.8); Carbon Dioxide 31 mEq/L (19-29); Chloride 100 mEq/L (98-109); Glucose 345 mg/dL (70-99); Osmolality,Calculated 297 (280-300); Potassium 4.7 mEq/L (3.5-4.5); Sodium 135 mEq/L (136-145); eGFR For African Americans > 60 (> 60); eGFR For Non-African Americans > 60 (> 60)
[2017-07-09] MEDS: Ipratropium/Albuterol Neb 3 ML IH SCH ×2 (03:47→10:41)
[2017-07-09] MEDS: *HR* LORazepam 2 MG/ML VIAL IVP PRN ×2 (06:00→11:42)
[2017-07-09] MEDS: levoFLOXacin 750 MG TABLET PO SCH (07:50)
[2017-07-09] MEDS: Insulin LISPRO 300 UNITS/3 ML VIAL SQ SCH ×2 (07:50→11:43)
[2017-07-09] MEDS: MethylPREDNISolone 40 MG/ML VIAL IVP SCH (07:51)
[2017-07-09] MEDS: *HR* Heparin 5,000 UNIT/ML VIAL SQ SCH (07:51)
--- NOTE | 2017-07-09 10:02 | Internal Med Progress Note ---
Date of Encounter: 07/09/17 Time of Encounter: 10:00 - Assessment and plan (1) Acute respiratory failure with hypoxia Current Visit: Yes Status: Acute (2) Community acquired pneumonia Current Visit: Yes Status: Acute Qualifiers: Laterality: right Lung location: lower lobe of lung Qualified Code(s): J18.1 - Lobar pneumonia, unspecified organism (3) Accelerated hypertension Current Visit: Yes Status: Acute Assessment and plan: Blood pressure under better control after the addition of lisinopril. Continue to monitor, hydralazine when necessary for elevated blood pressures. (4) Steroid-induced hyperglycemia Current Visit: Yes Status: Acute Assessment and plan: Blood sugars been significantly elevated since presentation, likely related to steroids. Patient is required 28 units of sliding scale coverage over the past 24 hours, we will institute Levemir 8 units daily and 4 units of NovoLog with meals. We will start at lower doses given that the patient is insulin naive. Continue to monitor blood sugars and adjust based on readings. (5) Hepatitis C Current Visit: Yes Status: Acute Assessment and plan: Chronic. Qualifiers: Viral hepatitis chronicity: unspecified Hepatic coma status: without hepatic coma Qualified Code(s): B19.20 - Unspecified viral hepatitis C without hepatic coma (6) Polycythemia Current Visit: Yes Status: Acute Assessment and plan: Chronic, likely secondary to severe COPD and pulm fibrosis (7) Thrombocytopenia Current Visit: Yes Status: Acute Assessment and plan: Chronic - Subjective Interval history: Patient seen and examined at bedside. Patient states that he feels about the same today. Still reports shortness of breath with exertion and cough that is unchanged from yesterday. Denies fever, chills, chest pain - Constitutional Vitals: Temp Pulse Resp BP Pulse Ox 98.1 F 78 18 136/72 96 07/09/17 06:47 07/09/17 06:47 07/09/17 06:47 07/09/17 06:47 07/09/17 06:47 General appearance: Present: A&O X 3, no acute distress - Respiratory Respiratory exam: Present: decreased breath sounds. Absent: rales, respiratory distress, rhonchi, wheezes, tachypnea - Cardiovascular Cardiovascular exam: Present: RRR. Absent: gallop, rubs, systolic murmur - GI/Abdominal GI/Abdominal exam: Present: normal bowel sounds, soft. Absent: distended, tenderness - Extremities Exam Extremities exam: Present: radial pulses palpable and symmetrical. Absent: pedal edema, tenderness, warm - Neurological Exam Neurological exam: Present: alert, CN II-XII intact, oriented X3, no focal deficits Internal Medicine: Result - Labs CBC & Chem 7: 07/09/17 02:49 07/09/17 02:49 Labs: Short CBC 07/09/17 Range/Units 02:49 WBC 11.1 (4.3-11.1) K/mcL Hgb 15.2 (12.9-16.9) g/dL Hct 45.9 (37.5-50.1) % Plt Count 75 L (140-400) K/mcL BMP 07/09/17 02:49 Sodium 135 L Potassium 4.7 H Chloride 100 Carbon Dioxide 31 H BUN 23 Creatinine 0.95 Glucose 345 H Calcium 8.9 - ABG Interpretation ABG results: ABG ABG pH 7.38 pH Units (7.32-7.45) 07/02/17 12:20 ABG pCO2 48 mmHg (35-45) H 07/02/17 12:20 ABG pO2 91 mmHg (85-104) 07/02/17 12:20 ABG O2 Saturation 97 % (95-98) 07/02/17 12:20 PT/INR, D-dimer D-Dimer 508 ng/mLFEU (0-500) H 07/02/17 09:04 Consult Discharge Plan - Plan Referrals: Chuck Solis [Primary Care Provider] - 08/08/17 9:00 am (First open appointment. If you need seen sooner please call to see if there was any cancellations)
[2017-07-09] MEDS ORDERED: Insulin DETEMIR 100 UNIT/ML X5UNITS SQ SCH (10:15)
[2017-07-09] MEDS: Cefepime HCl 1,000 MG in Water for inj. (sterile) 10 ML IVPB SCH (10:16)
[2017-07-09 10:51] VITALS: BP 145/81
[2017-07-09] MEDS ORDERED: Insulin LISPRO 300 UNITS/3 ML VIAL SQ SCH (12:00)
--- NOTE | 2017-07-09 12:31 | Discharge Summary ---
<Nikunj Galindo - Last Filed: 07/09/17 13:08> Date of Encounter: 07/09/17 Time of Encounter: 12:29 - Discharge Diagnosis (1) Acute respiratory failure with hypoxia Priority: Primary Status: Acute (2) Community acquired pneumonia Priority: Primary Status: Acute Qualifiers: Laterality: right Lung location: lower lobe of lung Qualified Code(s): J18.1 - Lobar pneumonia, unspecified organism (3) Accelerated hypertension Priority: Secondary Status: Acute (4) Steroid-induced hyperglycemia Priority: Secondary Status: Acute (5) Hepatitis C Priority: Secondary Status: Chronic Qualifiers: Viral hepatitis chronicity: unspecified Hepatic coma status: without hepatic coma Qualified Code(s): B19.20 - Unspecified viral hepatitis C without hepatic coma (6) Polycythemia Priority: Secondary Status: Chronic (7) Thrombocytopenia Priority: Secondary Status: Chronic - Discharge Medications Home Medications: Albuterol Sulfate [Ventolin Hfa] 2 puff IH Q6H PRN 07/02/17 [History] Budesonide [Rhinocort Allergy] 2 spr NS DAILY 07/02/17 [History] Budesonide/Formoterol 160/4.5 [Symbicort 160/4.5] 2 puff IH BIDR 07/02/17 [ History] Cyclobenzaprine [Flexeril] 10 mg PO TID 07/02/17 [History] Loratadine [Allergy Relief] 10 mg PO DAILY 07/02/17 [History] Omeprazole [PriLOSEC] 20 mg PO DAILY 07/02/17 [History] Ipratropium/Albuterol Neb [Duoneb] 3 ml IH [id number] inhsol 07/09/17 [Rx] Lisinopril [Zestril] 10 mg PO DAILY tablet 07/09/17 [Rx] levoFLOXacin [Levaquin] 750 mg PO DAILY tablet 07/09/17 [Rx] methylPREDNISolone [Solu-MEDROL] 40 mg IVP Q12HR vial 07/09/17 [Rx] Allergies/Adverse Reactions: 3 Allergy/AdvReac Type Severity Reaction Status Date / Time Penicillins Allergy Rash Verified 05/05/15 18:48 Date of admission: 07/02/17 13:04 Primary care physician: Chuck Solis Consults: 07/05/17 11:03 Consult to Raw Mill Operator [CONS] Routine Reason for SW Consult: Pt will require high flow oxygen at discharge, patient currently does not have any oxygen at home. Thanks Discharging clinician: Nikunj Galindo Anticipated date of discharge: 07/09/17 - Patient Status Disposition: Transfer Short-Term Hosp Condition: Fair Functional capacity at discharge: independent ambulation Overall status at discharge: patient is progressing back to baseline - Discharge Instructions Follow Up With: Chuck Solis [Primary Care Provider] - 08/08/17 9:00 am (First open appointment. If you need seen sooner please call to see if there was any cancellations) - Diet and Activity Activity: as per physical therapy Diet: advance to your usual diet Interval History: Patient seen and examined at bedside. Patient states that he does not feel any better. He states that he still feels short of breath with activity and reports persistent cough. Hospital course: Mr. Pompa is a 56 year old male with history of pulmonary fibrosis and COPD who presents with shortness of breath and cough. Patient was found to be hypoxic on admission and CT of the chest revealed multifocal pneumonia. Patient was placed on antibiotics for community acquired pneumonia with Levaquin. Patient has remained stable throughout his hospital stay but he did not feel that he was improving. This was discussed with his go go dancer who felt that the patient would have a long recovery given his underlying lung disease. This was explained to the patient however he felt that he would be better served getting a second opinion at the [facility]. The patient and his family requested transfer so arrangements were made to transfer the patient to [facility] in stable condition. - Time Spent with Patient Total time spent providing and/or coordinating discharge services: - Constitutional Vitals: Temp Pulse Resp BP Pulse Ox 97.9 F 84 18 145/81 96 07/09/17 10:49 07/09/17 10:49 07/09/17 10:49 07/09/17 10:49 07/09/17 10:49 General appearance: Present: A&O X 3, no acute distress - Respiratory Respiratory exam: Present: decreased breath sounds. Absent: CTAB, rales, rhonchi, wheezes - Cardiovascular Cardiovascular exam: Present: RRR. Absent: gallop, rubs, systolic murmur - GI/Abdominal GI/Abdominal exam: Present: normal bowel sounds, soft. Absent: distended, tenderness - Extremities Exam Extremities exam: Present: warm. Absent: pedal edema, tenderness - Neurological Exam Neurological exam: Present: alert, CN II-XII intact, oriented X3, no focal deficits <Georges Montez T - Last Filed: 07/09/17 13:45> Date of Encounter: 07/09/17 Date of admission: 07/02/17 13:04 Primary care physician: Chuck Solis Consults: 07/05/17 11:03 Consult to Raw Mill Operator [CONS] Routine Reason for SW Consult: Pt will require high flow oxygen at discharge, patient currently does not have any oxygen at home. Thanks Hospital course: Mr. Pompa is a 56 year old male - Time Spent with Patient Total time spent providing and/or coordinating discharge services: - Constitutional Vitals: Temp Pulse Resp BP Pulse Ox 97.9 F 84 18 145/81 96 07/09/17 10:49 07/09/17 10:49 07/09/17 10:49 07/09/17 10:49 07/09/17 10:49 - Attending Attestation I independently saw and examined this patient on 07/09/17 This is hospital day 7, but my first encounter with this patient. He is admitted and being managed for acute hypoxic respiratory failure secondary to sepsis from pneumonia and COPD exacerbation. He has underlying pulmonary fibrosis. Upon my evaluation, patient is extremely agitated, unsatisfied with his care at this facility and persistently requesting to be transferred to [facility]. He called his brother on the cell phone and insisted I spoke with his brother, stated that he wants a second opinion regarding patient's care to [facility]. He continues to require 10 L of oxygen by nasal cannula. His physical examination is significant for diminished breath sounds globally. He has no rhonchi or crackles. He is alert and oriented 4 and he moves all extremities. No pedal edema. Labs and imaging reviewed. Patient will be transferred to [facility] upon request, cyanosis unavailability of bed. Rest of details as in the resident physician's documentation.
[2017-07-09] MEDS ORDERED: MethylPREDNISolone 40 MG/ML VIAL IVP SCH (18:00)
== END 2017-07-09 14:06 | disposition short-term general hospital (02) | DRG 720 ==
LOC: 3BNU 08:51 → EMEROO 08:51 → SUATTDRO 13:04 → 2ANU 17:56
PROVIDERS: ADMIT Internal Medicine; ATTEND Internal Medicine